=== PATIENT | male | born 1980 | race Caucasian/White ===

== ENCOUNTER 2019-06-07 18:17 | Emergency (ER) | payer OTHER ==
[2019-06-07 18:26] VITALS: BP 172/129; PULSE 104; RESP 18; TEMP 98.5
--- NOTE | 2019-06-07 18:40 | ED ---
Male Urogenital HPI - General Chief complaint: Urogenital Stated complaint: Rash Time Seen by Provider: 06/07/19 18:28 Source: patient Mode of arrival: ambulatory Limitations: no limitations - History of Present Illness Initial comments: Patient is a 39-year-old male presenting to the emergency department with a chief complaint of a penis rash. Patient states he has noticed a tingling sensation on the glans penis for about one week. Patient states over the last 2 days he developed a rash in the region as well. States the rash has resolved since yesterday however the penile discomfort is still present. Denies any lesions, discharge or swelling from the penis. States he is in a monogamous relationship and is not concerned for STDs. States there is low probability his partner is exposed to any STDs. States he would like to get gonorrhea and chlamydia testing. Denies history of STDs. Denies testicular pain, swelling or erythema. - Related Data Allergies Allergy/AdvReac Type Severity Reaction Status Date / Time No Known Allergies Allergy Verified 06/07/19 18:21 Review of Systems ROS Statement: Those systems with pertinent positive or pertinent negative responses have been documented in the HPI. ROS Other: All systems not noted in ROS Statement are negative. Past Medical History Past Medical History: No Reported History History of Any Multi-Drug Resistant Organisms: None Reported Past Surgical History: Orthopedic Surgery Additional Past Surgical History / Comment(s): dental implants, R knee Past Psychological History: No Psychological Hx Reported Smoking Status: Never smoker Past Alcohol Use History: Occasional Past Drug Use History: None Reported General Exam Limitations: no limitations General appearance: alert, in no apparent distress Head exam: Present: atraumatic, normocephalic, normal inspection Eye exam: Present: normal appearance Pupils: Present: normal accommodation ENT exam: Present: normal exam Neck exam: Present: normal inspection, full ROM Respiratory exam: Present: normal lung sounds bilaterally. Absent: respiratory distress, wheezes, rales Cardiovascular Exam: Present: regular rate, normal rhythm, normal heart sounds GI/Abdominal exam: Present: soft. Absent: distended, tenderness, guarding, rebound, hernia (Inguinal) exam: Present: normal inspection, circumcision. Absent: testicular tenderness, urethral discharge, scrotal swelling, vertical testicular lie Extremities exam: Present: normal inspection, full ROM Back exam: Present: normal inspection, full ROM Neurological exam: Present: alert, oriented X3 Psychiatric exam: Present: normal affect, normal mood Skin exam: Present: warm, dry, intact, normal color Course Vital Signs 06/07/19 18:23 Temperature 98.5 F Pulse Rate 104 H Respiratory 18 Rate Blood Pressure 172/129 O2 Sat by Pulse 98 Oximetry Medical Decision Making - Medical Decision Making Patient is a 39-year-old male presenting to the emergency department with a chief complaint of a penis rash. On physical examination, no lesions or rashes are noted on the glans penis. Testicular examination is unremarkable. Penile pain is not reproducible with palpation. Denies any dysuria, increased frequency or urgency. Urine culture pending. Gonorrhea and chlamydia testing pending. I offer the patient gonorrhea and chlamydia treatment but he declined. She advised to follow-up with urology symptoms continue. Return parameters were thoroughly discussed the patient is understanding and agreeable. - Lab Data Lab Results 06/07/19 Range/Units 18:45 Urine Color Yellow Urine Appearance Cloudy (Clear) Urine pH 7.5 (5.0-8.0) Ur Specific [place] 1.018 (1.001-1.035) Urine Protein Negative (Negative) Urine Glucose (UA) Negative (Negative) Urine Ketones Negative (Negative) Urine Blood Negative (Negative) Urine Nitrite Negative (Negative) Urine Bilirubin Negative (Negative) Urine Urobilinogen <2.0 (<2.0) mg/dL Ur Leukocyte Esterase Negative (Negative) Urine RBC <1 (0-5) /hpf Amorphous Sediment Rare H (None) /hpf Urine Bacteria Rare H (None) /hpf Urine Mucus Rare H (None) /hpf Disposition Clinical Impression: Possible exposure to STD, Penile pain Disposition: HOME SELF-CARE Condition: Stable Instructions (If sedation given, give patient instructions): Sexually Transmitted Diseases (ED) Additional Instructions: Follow-up with urologist. Return to emergency department if symptoms worsen. Is patient prescribed a controlled substance at d/c from ED?: No Referrals: None,Stated [Primary Care Provider] - 1-2 days Garrett Hardy MD [STAFF PHYSICIAN] - 1-2 days Time of Disposition: 20:00
[2019-06-07 19:18] LABS: Amorphous Sediment,Urine Rare /hpf; Appearance,Urine Cloudy (Clear); Bacteria,Urine Rare /hpf; Bilirubin,Urine Negative (Negative); Blood,Urine Negative (Negative); Color,Urine Yellow; Glucose,Urine (UA) Negative (Negative); Ketones,Urine Negative (Negative); Leukocyte Esterase,Urine Negative (Negative); Mucus,Urine Rare /hpf; Nitrite,Urine Negative (Negative); PH, Urine 7.5 (5.0-8.0); Protein,Urine Negative (Negative); RBC,Urine <1 /hpf (0-5); Specific Gravity,Urine 1.018 (1.001-1.035); Urobilinogen,Urine <2.0 mg/dL (<2.0)
[2019-06-08 15:38] LABS: C. trachomatis,PCR Negative (Neg,Equiv); Chlamydia trachomatis Source Urine; N. gonorrhoeae,PCR Negative (Neg,Equiv); Neisseria Source Urine
== END 2019-06-07 20:10 | disposition home or self-care (01) ==
LOC: EC 18:17
DX: N48.89 Other specified disorders of penis (principal); Z20.2 Contact with and (suspected) exposure to infections with a predominantly sexual mode of transmission; Z98.890 Other specified postprocedural states; Z53.20 Procedure and treatment not carried out because of patient's decision for unspecified reasons
CPT/HCPCS: 81001; 87491; 87591; 99283